=== PATIENT | male | born 1965 | race Caucasian/White ===

== ENCOUNTER 2020-04-07 09:30 | Outpatient (CLI) | payer OTHER ==
--- NOTE | 2020-04-07 10:53 | RAD ---
TWO VIEW CHEST: HISTORY: Cough and fever. FINDINGS: Lung armenta appear clear. Heart and mediastinum appear normal. Osseous structures unremarkable. IMPRESSION: No acute process identified. POS: [id number]
== END 2020-04-07 09:31 | disposition home or self-care (01) ==
LOC: BICRAD 09:30
PROVIDERS: ATTEND Internal Medicine Cardiovascular Disease
DX: R05 Cough (principal); R50.9 Fever, unspecified; R91.8 Other nonspecific abnormal finding of lung field
CPT/HCPCS: 71046